=== PATIENT | female | born 2000 | race Two or more races ===

== ENCOUNTER 2025-07-10 18:20 | Observation (INO) | payer MEDICAID, SELFPAY ==
[2025-07-10] VITALS (24 sets, daily range): BP systolic 107–127; BP diastolic 58–65; PULSE 74–108; RESP 16–99; TEMP 36.8; O2SAT 93–100; BMI 22.8
--- NOTE | 2025-07-10 18:44 | XR_ITS ---
Examination: Complete OB ultrasound greater than 14 weeks Date and time of exam: July 10, 2025, 1948 hours INDICATIONS: No care, onset vaginal bleeding today Findings: Viable intrauterine single fetus with single amniotic sac presentation cephalic Cardiac motion 155 bpm Placenta posterior grade 2 Umbilical cord insertion 3 vessels seen Amniotic fluid index 12.5 cm spine maternal right Cervix 3.4 cm Ovaries obscured by bowel gas Composite estimated gestational age based on BPD, head circumference, abdominal circumference, femur length is 30 weeks 4 days Estimated weight 1595 g. Survey of intracranial anatomy, spinal anatomy, abdominal anatomy, four-chamber heart performed with no abnormalities identified. Impression: Viable intrauterine gestation in cephalic presentation.
[2025-07-10 20:09] LABS: Basophils # (Auto) 0.0 Thou/mm3 (0.0-0.2); Basophils % (Auto) 0 % (0-2.5); Eosinophils # (Auto) 0.0 Thou/mm3 (0.0-0.5); Eosinophils % (Auto) 1 % (0-10); Hematocrit 28.4 % (36.0-46.0); Hemoglobin 9.2 g/dL (12.0-16.0); Immature Granulocytes Auto 0.03 Thou/mm3 (0.00-0.00); Lymphocytes # (Auto) 1.0 Thou/mm3 (1.0-4.8); Lymphocytes % (Auto) 18 % (10-50); Mean Corpuscular HGB Conc 32.4 g/dl (31.0-37.0); Mean Corpuscular Hemoglobin 25.5 pg (25.0-35.0); Mean Corpuscular Volume 79 fL (80-100); Monocytes # (Auto) 0.4 Thou/mm3 (0.0-0.8); Monocytes % (Auto) 8 % (0-12); Neutrophils # (Auto) 4.1 Thou/mm3 (1.8-7.7); Neutrophils % (Auto) 73 % (37-80); Nucleated Red Blood Cell # 0.00 Thou/mm3 (0.00-0.00); Nucleated Red Blood Cell % 0 /100 WBC (0); Platelet Count 247 Thou/mm3 (140-440); RDW Standard Deviation 36.2 fL (36.4-46.3); Red Blood Count 3.61 Miln/mm3 (4.00-5.20); White Blood Count 5.7 Thou/mm3 (3.6-11.0)
[2025-07-10 20:31] LABS: Collection Type, Urine Clean Catch
[2025-07-10 20:36] LABS: Alanine Aminotransferase 8 U/L (10-49); Albumin, Serum 3.8 gm/dL (3.5-5.0); Albumin/Globulin Ratio 1.4 (1.2-2.2); Alkaline Phosphatase 149 U/L (46-116); Anion Gap 12 (7-16); Aspartate Amino Transferase 15 U/L (0-34); BUN/Creatinine Ratio 7 Ratio (12-20); Bilirubin,Total 0.4 mg/dL (0.3-1.2); Blood Urea Nitrogen < 5 mg/dL (9-23); Calcium 8.9 mg/dL (8.3-10.6); Calcium (Corrected) 9.1 mg/dL (8.5-10.1); Carbon Dioxide 21.9 mMol/L (20.0-31.0); Chloride 105 mMol/L (98-107); Creatinine (Component) 0.7 mg/dL (0.6-1.3); Estimated Creatinine Clearance 86.0 mL/min (>60); Globulin 2.7 gm/dL (2.3-3.5); Glucose 96 mg/dL (74-106); Osmolality,Calculated 274 (275-295); Potassium 3.4 mMol/L (3.4-5.1); Sodium 139 mMol/L (136-145); Total Protein 6.5 gm/dL (5.7-8.2); Uric Acid 4.4 mg/dL (3.1-7.8); eGFR > 60 See Note
[2025-07-10 20:38] LABS: Fibrinogen 576 mg/dL (175-375); INR 0.9 (0.9-1.3); Partial Thromboplastin Time 26.4 Seconds (22.0-36.0); Prothrombin Time 9.9 Seconds (9.0-12.2)
[2025-07-10 20:43] LABS: Amphetamine/Metham Scrn,Ur OB Negative (Negative); Benzoylecgonine Screen, Ur OB Negative (Negative); Creatinine,Random Urine 134 mg/dL (30-125); Opiate Screen,Urine OB Negative (Negative); Protein Total, Random Urine 32 mg/dL (1-14); THC Screen,Urine OB Negative (Negative)
[2025-07-10 20:46] LABS: Bacteria,Urine Rare; Bilirubin,Urine Negative (Negative); Blood,Urine 3+ (Negative); Calcium Oxalate Crystals,Urine Rare; Clarity,Urine Turbid (Clear/Hazy); Color,Urine Yellow (Lt Yel-Yel); Glucose, Urine Negative (Negative); Ketones,Urine Negative (Negative); Leukocyte Esterase,Urine Positive (Negative); Nitrite,Urine Negative (Negative); PH,Urine 6.0 (5.0-7.0); Protein,Urine Trace (Neg - Trace); RBC,Urine 17 /hpf (0-3); Specific Gravity,Urine 1.022 (1.001-1.035); Squamous Epithelial Cell,Urine 4 /hpf (0-5); Urobilinogen,Urine 4.0 mg/dL (0.0-1.0); WBC,Urine 50 /hpf (0-5)
[2025-07-10 20:50] LABS: HIV (1&2) Antibody Rapid Non-Reactive
[2025-07-10 20:56] LABS: LDH (Lactate Dehydrogenase) 179 U/L (120-246)
[2025-07-10 21:13] LABS: Hepatitis B Surface Antigen Non Reactive (Non React); Rubella, IgG Antibody Equivocal
[2025-07-10 23:56] LABS: Syphilis Nonreactive (Nonreactive)
[2025-07-11 11:19] LABS: Chlamydia trachomatis PCR Positive (Not Detect); Neisseria Gonorrhoeae DNA PCR Negative (Not Detect); Trichomonas Negative (Negative)
== END 2025-07-10 23:37 | disposition home or self-care (01) ==
PROVIDERS: Admitting Provider Obstetrics & Gynecology; Visit Provider Obstetrics & Gynecology
DX: O46.93 Antepartum hemorrhage, unspecified, third trimester (principal); O09.33 Supervision of pregnancy with insufficient antenatal care, third trimester; Z3A.30 30 weeks gestation of pregnancy
CPT/HCPCS: 36415; 59899; 76805; 80053; 80307; 81001; 82570; 83615; 84156; 84550; 85025; 85384; 85610; 85730; 86703; 86762; 86780; 86850; 86900; 86901; 87340; 87491; 87591; 87661

== ENCOUNTER 2025-07-14 09:37 | Outpatient (AMB) | payer MEDICAID, SELFPAY ==
--- NOTE | 2025-07-14 10:15 | OBCLNT_ITS ---
Vital Signs 07/14/25 10:29 Height 1.5 m Height Method Stated Weight 51.426 kg Weight Measurement Method Standing Scale BMI 22.8 BP 105/68 Blood Pressure Source Automatic Cuff Blood Pressure Location Left Upper Arm Position Sitting Respiration 14 Pulse 71 Pulse Source Monitor Temp 97.7 F Temp Source Oral Pulse Oximetry (%) 99 Oxygen Delivery Method Room Air Allergies/Home Meds Allergies & Medications Allergies No Known Allergies Allergy (Verified 07/14/25 10:30) Medication Reconciliation vit no.95-ferrous fumarate 28 mg-folic acid 800 mcg tablet () 1 tab PO QDAY #30 tabs 06/26/23 [Rx Confirmed 07/14/25] Held on 07/10/25. Instructions: pt choice ferrous sulfate 325 mg (65 mg iron) capsule,extended release 1 mg PO QDAY 01/22/24 [History Confirmed 07/14/25] azithromycin 1 gram oral packet 1 g PO QWEEK 3 doses #3 ea 07/14/25 [Rx] Intake Visit Data Collection New Patient or Established: Established Patient (seen at [facility] within 3 years) Reason for Visit:: INITIAL CARE Seen by Clinical Staff ONLY (RN/MA): No Commercial Interior Designer Required: No Do You Feel Safe at Home: Yes Authorities Contacted: N/A PCP or OBGYN visit in last 3 months: No Hx Now: Yes Are you currently on any form of Control: No Last menstrual period: 12/29/24 Pain Present Currently: No Pain Scale Used: Harris-Samano/Numerical Pain scale:: 0 Smoking Status Smoking Status: Never smoker Immunizations Flu Vaccine in the Last 12 Months: No Flu Vaccine Exclusion Criteria: Refused by Patient Questionnaires Covid-19 Vaccine Questionnaire Has patient been vacinated for Covid-19 Have you been vacinated for Covid-19: No PHQ-9 PHQ-2 Over the last 2 weeks, how often have you been bothered by any of the following problems? 1. Little interest or pleasure in doing things: not at all 2. Feeling down, depressed, or hopeless: not at all Total score: 0 PHQ-9 3. Trouble falling or staying asleep, or sleeping too much: Not at all 4. Feeling tired or having little energy: Not at all 5. Poor appetite or overeating: Not at all 6. Feeling bad about yourself - or that you are a failure or have let yourself or your family down: Not at all 7. Trouble concentrating on things, such as reading the newspaper or watching television: Not at all 8. Moving or speaking so slowly that other people could have noticed? - Or the opposite - being so fidgety or restless that you have been moving around a lot more than usual: not at all 9. Thoughts that you would be better off or of hurting yourself in some way: Not at all Total score: 0 Source: Developed by Drs. Ben Black, Luz Vega, Mj Avilez and colleagues, with an educational yuri from [employer]. Depression screen completed yes Social History Living Situation History Housing: House Tobacco History Smoking Status: Never smoker Second Hand Smoke Exposure: No Alcohol History Alcohol Intake: Never Domestic Abuse History Do You Feel Safe at Home: Yes History of Present Illness HPI Narrative Establish care Patient is a [id number] at 30 weeks and 4 days gestation by ultrasound, presenting to [facility] care. She reports a last menstrual period of December 29, 2024, which would make her 28 weeks and 1 day gestational age. However, ultrasound performed on July 10, 2025, dated her at 30 weeks and 4 days, creating a 3-week discrepancy between her ultrasound and LMP dates. Estimated due date is September 14, 2025. She is not currently taking vitamins. She has a history of one previous resulting in delivery at 33 weeks due to pre-eclampsia in 2023. Medical History: - Pre-eclampsia in 2023 Surgical History: - section at 33 weeks gestation due to pre-eclampsia in 2023 Obstetric History: - GTPAL: G2 T0 L1 - First : delivery at 33 weeks, complicated by pre- eclampsia Medications: - None; the patient is not currently taking vitamins or other medications/supplements. 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: Past Medical History Past Medical History: No Hx Neurological Disorders, No Hx Cardiac Disorders, No Hx Cancer, No Hx Blood Disorders, No Hx Anemia, No Hx Gastrointestinal Disorders, No Hx Renal Disease, No Hx Diabetes Mellitus Type 1 and No Hx Diabetes Mellitus Type 2 OB Initial Visit OB Flowsheet OB Flowsheet Initial Weight: Not Recorded Date -?-?-?-?-?-?-?-?-?-?-?-?- EGA Weight BP Alb Glu CTX Pres Fundal ht FHR Mov Dilation Station Effacement Hx Notes Visit Note 07/14/25 -?-?-?-?-?-?-?-?-?-?-?-?- 31w 1d 51.426 kg 105/68 absent cephalic 32 155 active - Lulu Hwang is presenting to establish care with a last menstrual period of 12-29-2024, making her 28 weeks and one day by dates. - Patient was seen in triage on 07-10-20 where ultrasound dating put her at 30 weeks and 4 days, creating a 3-week discrepancy between ultrasound and LMP dates. - She has a history of last ye ar at 33 weeks due to pre-eclampsia. - Patient reports she is not currently t aking vitamins. - She tested positive for chlamydia and had a urinary tract infecti on. - Baseline workup including all labs and pre-eclampsia panel - Closely monitor blood pressures, labs, and urine for protein - Combined antibiotic to treat chlamydia and urinary tract infection - Follow-up test in one month to ensure infection has cleared - One-hour glucose order - Urgent referral for ultrasound in [facility] [place] to check baby and placenta due to previous and delivery - NIPT test order - Start jgcl-hne-fzfzrbd vitami ns from any pharmacy - delivery planned due to prev ious Menstrual History Menstrual reliability: approximate (month known) Flow: normal Menstrual regularity: regular Monthly: Yes Age at menarche: 14 On control pills at conception: No Associated symptoms (LMP): Reports fatigue OB History : 2 Para: 1 Hx # Pregnancies: 1 # of Living Children: 1 Delivery History 1st : Child's name: ERICA date: 04/25/24 sex: female Gestational age at delivery (weeks): 33 Delivery type: Delivery complications: PRECLAMPSIA History of depression before or after : No Infection History & Risk Evaluation History of STDs: none Genetic Screening & History Genetic Screening/Teratology Counseling - Includes patient, baby's father, or anyone in either family with: 1. Patient's age 35 years or older as of estimated date of delivery: No 2. Thalassemia (Bulgarian, English, Mediterranean, or Background); MCV less than 80: No 3. Neural Tube Defect (Meningomyelocele, Spina Bifida, or Anencephaly): No 4. Congenital Heart Defect: No 5. Down Syndrome: No 6. Miguel-Sachs (Ashkenazi Gnosticism, Cajun, Irish [place]): No 7. Dayan Disease (Ashkenazi Gnosticism): No 8. Familial Dysautonomia (Ashkenazi Gnosticism): No 9. Sickle Cell Disease or Trait (): No 10. Hemophilia or other blood disorders: No 11. Muscular Dystrophy: No 12. Cystic Fibrosis: No 13. [place]'s Chorea: No 14. Mental Retardation/Autism: No 15. Other inherited genetic or chromosomal disorder: No 16. Maternal Metabolic Disorder (EG,TYPE 1 Diabetes, PKU): No 17. Patient or baby's father had a child with defects not listed above: No 18. Recurrent loss or a stillbirth: No 19. Medications (including supplements, vitamins, herbs or otc drugs)/illicit/recreational drugs/alcohol since last menstrual period: No 20. Any other: No Infection History 1. Live with someone with TB or exposed to TB: No 2. Rash or viral illness since last menstrual period: No 3. Hepatitis B,C: No Other (see comments) Source: [employer] Review of Systems Constitutional Constitutional: Reports fatigue Endocrine Endocrine: Reports fatigue Office Procedures OBC Clinic LOC & Office Proc's Nursing/Assessment Patient Status: Established Patient OB Clinic Nursing Assessment: Medication Reconciliation, Update PMH in EMR and Vital Signs OB Clinic Coordination of Care: Complex Care and Chronic Disease 1-5, Consent,records obtained, informed consent, Education Simp Pt/Fam, 1 Ins Authorization, Lab and Imaging orders, Results/Orders obtained and Staff clarify orders Special Needs: Heart tones Established Patient Charge Established Patient Point Assignment: 150 Established Patient Point Charge: EP Level 4 (120-155) Assessment & Plan Diagnosis / Problem List (1) Supervision of high risk , unspecified, third trimester: Status: Acute (2) Chlamydia infection: Status: Acute Plan Problem List - at 31 weeks gestation - History of preeclampsia - History of delivery - Anemia - Chlamydial infection - Urinary tract infection Assessment 31-week patient with history of prior delivery at 33 weeks due to pre-eclampsia, now presenting with anemia (hemoglobin 9.2), positive chlamydia infection, urinary tract infection with 3+ blood in urinalysis, and equivocal rubella serology. There is a 3-week discrepancy between ultrasound dating (30 weeks 4 days on 07-10-2025) and last menstrual period dating (28 weeks 1 day based on LMP 12-29-2024), with ultrasound dating being used for estimated due date of September 14. Patient has vertex presentation and will require repeat section due to prior delivery. heart rate is normal at 134 bpm. Chemistry panel, liver enzymes, creatinine, and other infectious disease screening including HIV, hepatitis B, syphilis, gonorrhea, an d trichomonas are negative or within normal limits. Plan - Baseline workup including all labs and pre-eclampsia panel - Closely monitor blood pressures, labs, and urine for protein - Combined antibiotic to treat chlamydia and urinary tract infection - Follow-up test in one month to ensure infection has cleared - One-hour glucose order - Urgent referral for ultrasound in [place] to check baby and placenta due to previous and delivery - NIPT test order - Start [id number] vitamins from any pharmacy - delivery planned due to previous 1. Progress Reviewed gestational age, growth, and heart rate. Planned frequent visits (every 2 weeks until 36 weeks, then weekly). 2. Instructed patient to monitor movements and report decreases immediately. 3. Testing Counseled on routine third-trimester labs per guidelines. Discussed potential need for ultrasound or monitoring based on risk factors. 4. Preeclampsia Precaution Educated on preeclampsia signs: severe headache, vision changes, right upper quadrant pain, sudden swelling. Advised urgent reporting of symptoms and discussed blood pressure monitoring if high risk. 5. Labor Precautions Reviewed labor signs: regular contractions, pelvic pressure, back pain, bleeding, or fluid leakage. Instructed to seek immediate care for these symptoms. 6. Lifestyle and Delivery Preparation Reinforced vitamins, nutrition, and safe activity. Discussed plan, pain management, and . Advised on labor preparation (e.g., hospital bag) and expectations. 7. Psychosocial Support Assessed emotional well-being and offered resources for mental health or parenting support.
[2025-07-14 10:29] VITALS: BP 105/68; PULSE 71; RESP 14; TEMP 36.5; O2SAT 99; BMI 22.8
== END 2025-07-14 10:52 | disposition home or self-care (01) ==
LOC: HODSOBC 09:37
PROVIDERS: Supervising Provider Obstetrics & Gynecology; Visit Provider Obstetrics & Gynecology
DX: O09.893 Supervision of other high risk pregnancies, third trimester (principal); O98.313 Other infections with a predominantly sexual mode of transmission complicating pregnancy, third trimester; A56.8 Sexually transmitted chlamydial infection of other sites; O99.013 Anemia complicating pregnancy, third trimester; O23.43 Unspecified infection of urinary tract in pregnancy, third trimester; O09.213 Supervision of pregnancy with history of pre-term labor, third trimester; O09.293 Supervision of pregnancy with other poor reproductive or obstetric history, third trimester; O34.219 Maternal care for unspecified type scar from previous cesarean delivery; Z3A.31 31 weeks gestation of pregnancy; Z87.59 Personal history of other complications of pregnancy, childbirth and the puerperium
CPT/HCPCS: 99214; G0463

== ENCOUNTER 2025-07-28 11:00 | Outpatient (AMB) | payer MEDICAID, SELFPAY ==
[2025-07-28 11:09] VITALS: BP 113/73; PULSE 92; RESP 18; TEMP 36.1; O2SAT 98; BMI 23.3
--- NOTE | 2025-07-28 11:09 | OBCLNT_ITS ---
Vital Signs 07/28/25 11:09 Height 1.5 m Height Method Stated Weight 52.617 kg Weight Measurement Method Standing Scale BMI 23.3 BP 113/73 Blood Pressure Source Automatic Cuff Blood Pressure Location Left Upper Arm Position Sitting Respiration 18 Pulse 92 Pulse Source Monitor Temp 97 F Temp Source Oral Pulse Oximetry (%) 98 Oxygen Delivery Method Room Air Allergies/Home Meds Allergies & Medications Allergies No Known Allergies Allergy (Verified 09/04/25 05:11) Medication Reconciliation ferrous sulfate 325 mg (65 mg iron) tablet,delayed release 325 mg PO QDAY #30 tabs 09/05/25 [Rx] Intake Visit Data Collection New Patient or Established: Established Patient (seen at [facility] within 3 years) Reason for Visit:: OBC Seen by Clinical Staff ONLY (RN/MA): No Floating Labor Gang Supervisor Required: No Do You Feel Safe at Home: Yes Authorities Contacted: N/A PCP or OBGYN visit in last 3 months: Yes Date of Last PCP or OBGYN visit: 07/14/25 Hx Now: Yes Are you currently on any form of Control: No Pain Present Currently: No Pain Scale Used: Harris-Samano/Numerical Pain scale:: 0 Smoking Status Smoking Status: Never smoker Immunizations Flu Vaccine in the Last 12 Months: No Flu Vaccine Exclusion Criteria: No Exclusion Criteria Questionnaires Covid-19 Vaccine Questionnaire Has patient been vacinated for Covid-19 Have you been vacinated for Covid-19: No PHQ-9 PHQ-2 Over the last 2 weeks, how often have you been bothered by any of the following problems? 1. Little interest or pleasure in doing things: not at all 2. Feeling down, depressed, or hopeless: not at all Total score: 0 PHQ-9 3. Trouble falling or staying asleep, or sleeping too much: Not at all 4. Feeling tired or having little energy: Not at all 5. Poor appetite or overeating: Not at all 6. Feeling bad about yourself - or that you are a failure or have let yourself or your family down: Not at all 7. Trouble concentrating on things, such as reading the newspaper or watching television: Not at all 8. Moving or speaking so slowly that other people could have noticed? - Or the opposite - being so fidgety or restless that you have been moving around a lot more than usual: not at all If you checked off any problems, how difficult have these problems made it for you to do your work, take care of things at home, or get along with other people?: not difficult at all Source: Developed by Drs. Ben Black, Luz Vega, Mj Avilez and colleagues, with an educational yuri from [email or web address]. 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 Medical History Past Medical History: No Hx Neurological Disorders, No Hx Cardiac Disorders, No Hx Cancer, No Hx Blood Disorders, No Hx Anemia, No Hx Gastrointestinal Disorders, No Hx Renal Disease, No Hx Diabetes Mellitus Type 1 and No Hx Diabetes Mellitus Type 2 Care OB Visit Log OB Flowsheet Initial Weight: Not Recorded Date -?-?-?-?-?-?-?-?-?-?-?-?- EGA Weight BP Alb Glu CTX Pres Fundal ht FHR Mov Dilation Station Effacement Hx Notes Visit Note 07/14/25 -?-?-?-?-?-?-?-?-?-?-?-?- 31w 1d 51.426 kg 105/68 absent cephalic 32 155 active - Lulu Hwang is presenting to establish care with a last menstrual period of 12-29-2024, making her 28 weeks and one day by dates. - Patient was seen in triage on 07-10-20 where ultrasound dating put her at 30 weeks and 4 days, creating a 3-week discrepancy between ultrasound and LMP dates. - She has a history of last ye ar at 33 weeks due to pre-eclampsia. - Patient reports she is not currently t aking vitamins. - She tested positive for chlamydia and had a urinary tract infecti on. - Baseline workup including all labs and pre-eclampsia panel - Closely monitor blood pressures, labs, and urine for protein - Combined antibiotic to treat chlamydia and urinary tract infection - Follow-up test in one month to ensure infection has cleared - One-hour glucose order - Urgent referral for ultrasound in [place] to check baby and placenta due to previous and delivery - NIPT test order - Start eymj-ljn-lfpqaem vitami ns from any pharmacy - delivery planned due to prev ious 07/28/25 -?-?-?-?-?-?-?-?-?-?-?-?- 33w 1d 52.617 kg 113/73 absent cephalic 34 150 active - Lulu Hwang presents for routine appointment at 33 weeks and 1 day gestation. - Patient reports no contractions, cramp ing, or leaking. - She notes the baby has been active, pa rticularly this morning. - Patient was prescribed azithromycin at last visit for an infection but reports the pharmacy did not have it available. - Send alternative antibiotic p rescription as azithromycin was not available at pharmacy - Follow-up appointment in 2 weeks with Raquel (mailroom coordinator) - After 2-week visit, transition to week ly visits - Provide requested documentation for We estefania 08/11/25 -?-?-?-?-?-?-?-?-?-?-?-?- 35w 1d 54.658 kg 105/71 absent cephalic 35 156 active No complaints of contractions. Denies leaking or bleeding. Reports good movement. Complains of a vaginal discharge and itching. Labia and vagina are red. Heavy curdy white-greenish discharge N uSwab and GBS today. Diflucan 150 p.o. daily x 3. Flagyl 500 p.o. twice daily x 7. Discussed labor precautions kick count. Return in a week OB check 08/23/25 -?-?-?-?-?-?-?-?-?-?-?-?- 36w 6d 55.905 kg 118/80 absent cephalic 35 156 active Denies leaking or bleeding. Occasional contraction and pressure. Fetus is active. Patient reports that her vaginal discharge has improved Discussed labor precautions. Kick count twice a day. Discussed danger signs symptoms. Continue prenatals return week OB check 09/01/25 -?-?-?-?-?-?-?-?-?-?-?-?- 38w 1d 55.849 kg 122/78 absent cephalic 37 145 active Denies leaking or bleeding. No contractions. Reports good movement Discussed labor precautions. Kick count twice a day. Increase fluids. Continue prenatals return in a week for OB check Discussed labor precautions. Kick count twice a day. Increase fluids. Continue prenatals return in a week for OB check, schedule repeat c/s today for 09/08 MICA Calculator Estimated Delivery Date Method Current WG Current Estimate 09/14/25 Ultrasound #1 40w 0d Other Estimates 10/05/25 LMP (Certain) 37w 0d 09/14/25 Manual 40w 0d final mica 09/14 Notes Visit Date: 08/23/25 Last Updated by: Raquel Felton CNM GBS-/Nuswab+ for BV and yeast Visit Date: 08/11/25 Last Updated by: Raquel Felton CNM 24 yo poor dates. 1st sono: 07/10/25. IUP; 30w4. EDC: 09/14/25 Visit Date: 07/14/25 Last Updated by: Martinez Dominguez MD - Date: 07/10/2025 - Obstetric ultrasound: Gestational age 30 weeks 4 days, heart rate 134 bpm, fetus in vertex presentation - CBC: Hemoglobin 9.2 g/dL (low), Platelets 247 - Comprehensive metabolic panel: AST 15, ALT 8, Creatinine 0.7 (within normal limits) - STI panel: Chlamydia positive, Gonorrhea negative, Trichomonas negative, HIV negative, Hepatitis B negative, Syphilis non-reactive - Rubella: Equivocal - Toxicology screen: Negative - Urinalysis: 3+ blood, random protein 32, random creatinine 134, protein/creatinine ratio 0.23 Office Procedures OBC Clinic LOC & Office Proc's Nursing/Assessment Patient Status: Established Patient OB Clinic Nursing Assessment: Medication Reconciliation, Update PMH in EMR and Vital Signs OB Clinic Coordination of Care: Education Complex Pt/Fam, Consent,records obtained, informed consent, Lab and Imaging orders, Results/Orders obtained and Staff clarify orders Special Needs: Heart tones Established Patient Charge Established Patient Point Assignment: 115 Established Patient Point Charge: EP Level 3 (80-115) Assessment & Plan Diagnosis / Problem List (1) Chlamydia infection: Status: Acute (2) Supervision of high risk , unspecified, third trimester: Status: Acute Plan Problem List - at 33 weeks and 1 day gestation - Chlamydia infection - Late care Assessment 33-week and 1-day gestation with late entry to care (first visit at 31 weeks). Initial laboratories and trisomy screening are negative with female gender confirmed. Patient has chlamydia infection requiring antibiotic treatment, with azithromycin unavailable at pharmacy necessitating alternative antibiotic prescription. heart rate is 150 bpm which is within normal limits, and patient reports movement with no contractions, cramping, or leaking of fluid. Plan - Send alternative antibiotic prescription as azithromycin was not available at pharmacy - Follow-up appointment in 2 weeks with Raquel (mailroom coordinator) - After 2-week visit, transition to weekly visits - Provide requested documentation for [employer] 1. Progress Reviewed gestational age, growth, and heart rate. Planned frequent visits (every 2 weeks until 36 weeks, then weekly). 2. Instructed patient to monitor movements and report decreases immediately. 3. Testing Counseled on routine third-trimester labs per guidelines. Discussed potential need for ultrasound or monitoring based on risk factors. 4. Preeclampsia Precaution Educated on preeclampsia signs: severe headache, vision changes, right upper quadrant pain, sudden swelling. Advised urgent reporting of symptoms and discussed blood pressure monitoring if high risk. 5. Labor Precautions Reviewed labor signs: regular contractions, pelvic pressure, back pain, bleeding, or fluid leakage. Instructed to seek immediate care for these symptoms. 6. Lifestyle and Delivery Preparation Reinforced vitamins, nutrition, and safe activity. Discussed plan, pain management, and . Advised on labor preparation (e.g., hospital bag) and expectations. 7. Psychosocial Support Assessed emotional well-being and offered resources for mental health or parenting support.
== END 2025-07-28 11:20 | disposition home or self-care (01) ==
LOC: HODSOBC 11:00
PROVIDERS: Supervising Provider Obstetrics & Gynecology; Visit Provider Obstetrics & Gynecology
DX: O09.893 Supervision of other high risk pregnancies, third trimester (principal); O98.313 Other infections with a predominantly sexual mode of transmission complicating pregnancy, third trimester; A56.8 Sexually transmitted chlamydial infection of other sites; O09.33 Supervision of pregnancy with insufficient antenatal care, third trimester; Z3A.33 33 weeks gestation of pregnancy
CPT/HCPCS: 99213; G0463

== ENCOUNTER 2025-08-23 10:27 | Outpatient (AMB) | payer MEDICAID, SELFPAY ==
[2025-08-23 10:34] VITALS: BP 118/80; PULSE 106; RESP 18; TEMP 36.2; O2SAT 98; BMI 24.8
--- NOTE | 2025-08-23 10:34 | OBCLNT_ITS ---
Vital Signs 08/23/25 10:34 Height 1.5 m Height Method Stated Weight 55.905 kg Weight Measurement Method Standing Scale BMI 24.8 BP 118/80 Blood Pressure Source Automatic Cuff Blood Pressure Location Left Upper Arm Position Sitting Respiration 18 Pulse 106 H Pulse Source Monitor Temp 97.2 F Temp Source Oral Pulse Oximetry (%) 98 Oxygen Delivery Method Room Air Allergies/Home Meds Allergies & Medications Allergies No Known Allergies Allergy (Verified 08/23/25 10:36) Medication Reconciliation No Known Home Medications 08/23/25 [History Confirmed 08/23/25] Immunizations Immunizations Flu Vaccine in the Last 12 Months: No Flu Vaccine Exclusion Criteria: No Exclusion Criteria Care OB Visit Log OB Flowsheet Initial Weight: Not Recorded Date -?-?-?-?-?-?-?-?-?-?-?-?- EGA Weight BP Alb Glu CTX Pres Fundal ht FHR Mov Dilation Station Effacement Hx Notes Visit Note 07/14/25 -?-?-?-?-?-?-?-?-?-?-?-?- 31w 1d 51.426 kg 105/68 absent cephalic 32 155 active - Lulu Hwang is presenting to establish care with a last menstrual period of 12-29-2024, making her 28 weeks and one day by dates. - Patient was seen in triage on 07-10-20 where ultrasound dating put her at 30 weeks and 4 days, creating a 3-week discrepancy between ultrasound and LMP dates. - She has a history of last ye ar at 33 weeks due to pre-eclampsia. - Patient reports she is not currently t aking vitamins. - She tested positive for chlamydia and had a urinary tract infecti on. - Baseline workup including all labs and pre-eclampsia panel - Closely monitor blood pressures, labs, and urine for protein - Combined antibiotic to treat chlamydia and urinary tract infection - Follow-up test in one month to ensure infection has cleared - One-hour glucose order - Urgent referral for ultrasound in [facility] [place] to check baby and placenta due to previous and delivery - NIPT test order - Start nrjm-zxs-gmetfst vitami ns from any pharmacy - delivery planned due to prev ious 08/11/25 -?-?-?-?-?-?-?-?-?-?-?-?- 35w 1d 54.658 kg 105/71 absent cephalic 35 156 active No complaints of contractions. Denies leaking or bleeding. Reports good movement. Co mplains of a vaginal discharge and itching. Labia and vagina are red. Heavy curdy white-greenish discharge N uSwab and GBS today. Diflucan 150 p.o. daily x 3. Flagyl 500 p.o. twice daily x 7. Discussed labor precautions kick count. Return in a week OB check 08/23/25 -?-?-?-?-?-?-?-?-?-?-?-?- 36w 6d 55.905 kg 118/80 absent cephalic 35 156 active Denies leaking or bleeding. Occasional contraction and pressure. Fetus is active. Patient reports that her vaginal discharge has improved Discussed labor precautions. Kick count twice a day. Discussed danger signs symptoms. Continue prenatals return week OB check EDWARDO Calculator Estimated Delivery Date Method Current WG Current Estimate 09/14/25 Ultrasound #1 36w 6d Other Estimates 10/05/25 LMP (Certain) 33w 6d 09/14/25 Manual 36w 6d final edwardo 09/14 Notes Visit Date: 08/23/25 Last Updated by: Raquel Felton CNM GBS-/Nuswab+ for BV and yeast Visit Date: 08/11/25 Last Updated by: Raquel Felton CNM 24 yo poor dates. 1st sono: 07/10/25. IUP; 30w4. EDC: 09/14/25 Visit Date: 07/14/25 Last Updated by: Martinez Dominguez MD - Date: 07/10/2025 - Obstetric ultrasound: Gestational age 30 weeks 4 days, heart rate 134 bpm, fetus in vertex presentation - CBC: Hemoglobin 9.2 g/dL (low), Platelets 247 - Comprehensive metabolic panel: AST 15, ALT 8, Creatinine 0.7 (within normal limits) - STI panel: Chlamydia positive, Gonorrhea negative, Trichomonas negative, HIV negative, Hepatitis B negative, Syphilis non-reactive - Rubella: Equivocal - Toxicology screen: Negative - Urinalysis: 3+ blood, random protein 32, random creatinine 134, protein/creatinine ratio 0.23 Office Procedures OBC Clinic LOC & Office Proc's Nursing/Assessment Patient Status: Established Patient OB Clinic Nursing Assessment: Medication Reconciliation, Update PMH in EMR and Vital Signs OB Clinic Coordination of Care: Consent,records obtained, informed consent, Education Simp Pt/Fam, Lab and Imaging orders, Results/Orders obtained and Staff clarify orders Special Needs: Heart tones Established Patient Charge Established Patient Point Assignment: 110 Established Patient Point Charge: EP Level 3 (80-115) Assessment & Plan Diagnosis / Problem List (1) Supervision of high risk , unspecified, third trimester: Status: Acute Plan Discussed labor precautions. Kick count twice a day. Reviewed danger signs symptoms continue prenatals return week OB check Additional Plan Follow Up: 1 Week (obc)
== END 2025-08-23 11:25 | disposition home or self-care (01) ==
LOC: HODSOBC 10:27
PROVIDERS: Supervising Provider Advanced Practice Midwife; Visit Provider Advanced Practice Midwife
DX: O09.93 Supervision of high risk pregnancy, unspecified, third trimester (principal); Z3A.36 36 weeks gestation of pregnancy
CPT/HCPCS: 99213; G0463

== ENCOUNTER 2025-09-01 11:22 | Outpatient (AMB) | payer MEDICAID, SELFPAY ==
[2025-09-01 11:42] VITALS: BP 122/78; PULSE 83; RESP 18; TEMP 36.5; O2SAT 98; BMI 24.7
--- NOTE | 2025-09-01 11:42 | OBCLNT_ITS ---
Vital Signs 09/01/25 11:42 Height 1.5 m Height Method Stated Weight 55.849 kg Weight Measurement Method Standing Scale BMI 24.7 BP 122/78 Blood Pressure Source Automatic Cuff Blood Pressure Location Right Upper Arm Position Sitting Respiration 18 Pulse 83 Pulse Source Monitor Temp 97.7 F Temp Source Temporal Artery Scan Pulse Oximetry (%) 98 Oxygen Delivery Method Room Air Allergies/Home Meds Allergies & Medications Allergies No Known Allergies Allergy (Verified 09/01/25 11:44) Medication Reconciliation No Known Home Medications 08/23/25 [History Confirmed 09/01/25] Immunizations Immunizations Flu Vaccine in the Last 12 Months: No Flu Vaccine Exclusion Criteria: Refused by Patient Care OB Visit Log OB Flowsheet Initial Weight: Not Recorded Date -?-?-?-?-?-?-?-?-?-?-?-?- EGA Weight BP Alb Glu CTX Pres Fundal ht FHR Mov Dilation Station Effacement Hx Notes Visit Note 07/14/25 -?-?-?-?-?-?-?-?-?-?-?-?- 31w 1d 51.426 kg 105/68 absent cephalic 32 155 active - Lulu Hwang is presenting to establish care with a last menstrual period of 12-29-2024, making her 28 weeks and one day by dates. - Patient was seen in triage on 07-10-20 where ultrasound dating put her at 30 weeks and 4 days, creating a 3-week discrepancy between ultrasound and LMP dates . - She has a history of last ye ar at 33 weeks due to pre-eclampsia. - Patient reports she is not currently t aking vitamins. - She tested positive for chlamydia and had a urinary tract infecti on. - Baseline workup including all labs and pre-eclampsia panel - Closely monitor blood pressures, labs, and urine for protein - Combined antibiotic to treat chlamydia and urinary tract infection - Follow-up test in one month to ensure infection has cleared - One-hour glucose order - Urgent referral for ultrasound in [facility] [place] to check baby and placenta due to previous and delivery - NIPT test order - Start lrjk-ezu-eelhoot vitami ns from any pharmacy - delivery planned due to prev ious 08/11/25 -?-?--?-?-?-?-?-?-?-?-?-?- 35w 1d 54.658 kg 105/71 absent cephalic 35 156 active No complaints of contractions. Denies leaking or bleeding. Reports good movement. Complains of a vaginal discharge and itching. Labia and vagina are red. Heavy curdy white-greenish discharge N uSwab and GBS today. Diflucan 150 p.o. daily x 3. Flagyl 500 p.o. twice daily x 7. Discussed labor precautions kick count. Return in a week OB check 08/23/25 -?-?-?-?-?-?-?-?-?-?-?-?- 36w 6d 55.905 kg 118/80 absent cephalic 35 156 active Denies leaking or bleeding. Occasional contraction and pressure. Fetus is active. Patient reports that her vaginal discharge has improved Discussed labor precautions. K ick count twice a day. Discussed danger signs symptoms. Continue prenatals return week OB check 09/01/25 -?-?-?-?-?-?-?-?-?-?-?-?- 38w 1d 55.849 kg 122/78 absent cephalic 37 145 active Denies leaking or bleeding. No contractions. Reports good movement Discussed labor precautions. Kick count twice a day. Increase fluids. Continue prenatals return in a week for OB check Discussed labor precautions. Kick count twice a day. Increase fluids. Continue prenatals return in a week for OB check, schedule repeat c/s today for 09/08 EDWARDO Calculator Estimated Delivery Date Method Current WG Current Estimate 09/14/25 Ultrasound #1 38w 1d Other Estimates 10/05/25 LMP (Certain) 35w 1d 09/14/25 Manual 38w 1d final edwardo 09/14 Notes Visit Date: 08/23/25 Last Updated by: Raquel Felton CNM GBS-/Nuswab+ for BV and yeast Visit Date: 08/11/25 Last Updated by: Raquel Felton CNM 24 yo poor dates. 1st sono: 07/10/25. IUP; 30w4. EDC: 09/14/25 Visit Date: 07/14/25 Last Updated by: Martinez Dominguez MD - Date: 07/10/2025 - Obstetric ultrasound: Gestational age 30 weeks 4 days, heart rate 134 bpm, fetus in vertex presentation - CBC: Hemoglobin 9.2 g/dL (low), Platelets 247 - Comprehensive metabolic panel: AST 15, ALT 8, Creatinine 0.7 (within normal limits) - STI panel: Chlamydia positive, Gonorrhea negative, Trichomonas ne gative, HIV negative, Hepatitis B negative, Syphilis non-reactive - Rubella: Equivocal - Toxicology screen: Negative - Urinalysis: 3+ blood, random protein 32, random creatinine 134, protein/creatinine ratio 0.23 Office Procedures OBC Clinic LOC & Office Proc's Nursing/Assessment Patient Status: Established Patient OB Clinic Nursing Assessment: Medication Reconciliation, Update PMH in EMR and Vital Signs OB Clinic Coordination of Care: Complex Care and Chronic Disease 1-5, Education Complex Pt/Fam, Consent,records obtained, informed consent, Lab and Imaging orders, Results/Orders obtained and Staff clarify orders Special Needs: Heart tones Established Patient Charge Established Patient Point Assignment: 140 Established Patient Point Charge: EP Level 4 (120-155) Assessment & Plan Diagnosis / Problem List (1) Supervision of high risk , unspecified, third trimester: Status: Acute Plan Discussed labor precautions. Kick count twice a week day. Increase fluids. Continue prenatals. Return in a week OB check and practice safe sex Additional Plan Follow Up: 1 Week (obc)
== END 2025-09-01 12:03 | disposition home or self-care (01) ==
LOC: HODSOBC 11:22
PROVIDERS: Supervising Provider Advanced Practice Midwife; Visit Provider Advanced Practice Midwife
DX: O09.93 Supervision of high risk pregnancy, unspecified, third trimester (principal); Z3A.38 38 weeks gestation of pregnancy; Z28.21 Immunization not carried out because of patient refusal
CPT/HCPCS: 99214; G0463

== ENCOUNTER 2025-09-04 05:00 | Inpatient (IN) | payer MEDICAID, SELFPAY ==
[2025-09-04] VITALS (17 sets, daily range): BP systolic 116–146; BP diastolic 61–91; PULSE 75–186; RESP 14–100; TEMP 36.2–36.9; O2SAT 91–100; BMI 24.8
[2025-09-04] MEDS: TERBUTALINE SULF INJ 1 MG/ML VIAL 0.25 MG SC (05:48)
[2025-09-04 06:05] LABS: Collection Type, Urine Clean Catch
[2025-09-04 06:13] LABS: Basophils # (Auto) 0.0 Thou/mm3 (0.0-0.2); Basophils % (Auto) 0 % (0-2.5); Eosinophils # (Auto) 0.1 Thou/mm3 (0.0-0.5); Eosinophils % (Auto) 2 % (0-10); Hematocrit 31.7 % (36.0-46.0); Hemoglobin 9.8 g/dL (12.0-16.0); Immature Granulocytes Auto 0.05 Thou/mm3 (0.00-0.00); Lymphocytes # (Auto) 2.0 Thou/mm3 (1.0-4.8); Lymphocytes % (Auto) 22 % (10-50); Mean Corpuscular HGB Conc 30.9 g/dl (31.0-37.0); Mean Corpuscular Hemoglobin 22.6 pg (25.0-35.0); Mean Corpuscular Volume 73 fL (80-100); Monocytes # (Auto) 0.7 Thou/mm3 (0.0-0.8); Monocytes % (Auto) 7 % (0-12); Neutrophils # (Auto) 6.5 Thou/mm3 (1.8-7.7); Neutrophils % (Auto) 69 % (37-80); Nucleated Red Blood Cell # 0.00 Thou/mm3 (0.00-0.00); Nucleated Red Blood Cell % 0 /100 WBC (0); Platelet Count 233 Thou/mm3 (140-440); RDW Standard Deviation 41.5 fL (36.4-46.3); Red Blood Count 4.34 Miln/mm3 (4.00-5.20); White Blood Count 9.4 Thou/mm3 (3.6-11.0)
[2025-09-04] MEDS: ceFAZolin/D5W 2 GM IV 2 GM/100 ML BAG IV (06:16)
[2025-09-04] MEDS: FAMOTIDINE INJ 10 MG/ML VIAL 2 ML 20 MG IV (06:16)
[2025-09-04] MEDS: CITRIC ACID/SODIUM CITR 15 ML UDC (BICITRA) 30 ML PO (06:16)
--- NOTE | 2025-09-04 06:32 | PD.LDHP ---
Documentation for date of: 09/04/25 OB Labor/Induct. HPI History of Present Illness Chief complaint: contractions : 2 Para: 1 Term pregnancies: 0 pregnancies: 1 Living children: 1 History of Abortions: Spontaneous and Elective: 0 History of Vaginal deliveries: 0 History of sections: Yes History of : No Date of last menstrual period: 12/29/24 EDWARDO: 09/14/25 Gestational Age (weeks): 38 Gestational Age (days): 4 Gestational age based on last menstrual period: 35 History of present illness: Patient presents for regular, painful ctx. When presented to triage, had gross rupture of membranes, clear. No vaginal bleeding. Normal movement. No fevers/chills. History of Present Dating criteria: based on 3rd trimester US only Adequate Care: Yes Ultrasounds: other (1st ultrasound in 3rd trimester) Narrative: -History of prior section at 33 weeks on 01/28/2024 for possible abruption in the setting of PPROM and pre-eclampsia with severe features -Short inter- interval -Late to care at 30 weeks -Chlamydia treated in -anemia -PNC with Dr. Dominguez/MARIELY Felton Labs Maternal Blood Type: O Pos Labs: Positive: Chlamydia, Negative: RPR, Hepatitis B, Rubella Titre, HIV, Gonorrhea and Group Beta Strep and Unknown: Herpes Type 1 and Herpes Type 2 Review of Systems Review of Systems Narrative Review of Systems: Review of Systems Systems Reviewed: All systems reviewed, normal except as documented Constitutional Constitutional: Denies body ache(s), Denies chills, Denies fever(s) and Denies headache(s) ENT Ears, Nose, Mouth, and Throat: Denies headache(s) and Denies vertigo Cardiovascular Cardiovascular: Denies chest pain, Denies palpitations, Denies dyspnea and Denies syncope Respiratory Respiratory: Denies cough, Denies dyspnea Gastrointestinal Gastrointestinal: Denies nausea and Denies vomiting Neurologic Neurologic: Denies convulsions, Denies headache(s), Denies other visual disturbances, Denies syncope and Denies vertigo Past Medical History Surgical History SURGICAL: Positive Section Meds Home Medications and Allergies Home Medications ?Medication ?Instructions ?Recorded ?Confirmed ?Type No Known Home Medications 08/23/25 09/04/25 History Allergies Allergy/AdvReac Type Severity Reaction Status Date / Time No Known Allergies Allergy Verified 09/04/25 05:11 OB Exam Physical Exam Vital signs: Temp Pulse Resp BP Pulse Ox 97.3 F 75 17 146/87 H 99 09/04/25 05:20 09/04/25 05:48 09/04/25 05:20 09/04/25 05:23 09/04/25 05:55 Narrative: General: well developed, well nourished, no acute distress, conversant Cardiac: normal heart rate Lungs: breathing without distress Abdomen: soft, gravid, non-tender, no rebound or guarding Extremities: no edema BLE Detailed Labor and Delivery Exam Dilation (cm): 3 Effacement (%): 90 Cervix position: mid station: -1 Consistency: soft Presentation: Vertex Membranes: ruptured (clear 0515) Amniotic fluid: clear monitor accelerations: 15x15 monitor decelerations: None 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 Mild range bp's, benign exam. Reassuring assessment. PMhx/ significant for: -History of prior section at 33 weeks on 01/28/2024 for possible abruption in the setting of PPROM and pre-eclampsia with severe features -Short inter- interval -Late to care at 30 weeks -Chlamydia treated in -anemia -PNC with Dr. Dominguez/MARIELY Felton Plan: -Admit to L&D -Establish IV, routine labs to include PIH labs and chlamydia LARON -NPO -Counseled/consented re: section. Discussed all r/b/a to include: bleeding (possible need for blood transfusion), infection (subcutaneous, deeper layers or uterine with possible need for prolonged admission or re-admission for IV antibiotics, I&D with wound packing, etc), injury to nearby structures such as bladder, bowel, ureters, blood vessels, nerves with possible need for re-operation, pain, injury to baby, hysterectomy, DVT/PE, . Answered all questions to patient and their support person's satisfaction. -IV abx ppx: ancef 2g IV and azithromycin 500mg IV -Nursing and anesthesia team aware of plan for section. Will proceed to OR when team is ready (2) 38 weeks gestation of : Status: Acute (3) History of delivery, antepartum: Status: Acute
[2025-09-04 06:38] LABS: Fibrinogen 726 mg/dL (175-375); INR 0.9 (0.9-1.3); Partial Thromboplastin Time 26.0 Seconds (22.0-36.0); Prothrombin Time 9.7 Seconds (9.0-12.2)
[2025-09-04 06:41] LABS: Bacteria,Urine 1+; Bilirubin,Urine Negative (Negative); Blood,Urine Trace (Negative); Clarity,Urine Turbid (Clear/Hazy); Color,Urine Lt-Yellow (Lt Yel-Yel); Glucose, Urine Negative (Negative); Ketones,Urine Negative (Negative); Leukocyte Esterase,Urine Positive (Negative); Nitrite,Urine Negative (Negative); PH,Urine 6.0 (5.0-7.0); Protein,Urine Trace (Neg - Trace); RBC,Urine 2 /hpf (0-3); Specific Gravity,Urine 1.009 (1.001-1.035); Squamous Epithelial Cell,Urine 14 /hpf (0-5); Urobilinogen,Urine Negative mg/dL (0.0-1.0); WBC,Urine 23 /hpf (0-5)
[2025-09-04 07:25] LABS: Amphetamine/Metham Scrn,Ur OB Negative (Negative); Benzoylecgonine Screen, Ur OB Negative (Negative); Opiate Screen,Urine OB Negative (Negative); THC Screen,Urine OB Negative (Negative)
[2025-09-04 07:32] LABS: Creatinine,Random Urine 43 mg/dL (30-125); Protein Total, Random Urine 23 mg/dL (1-14)
[2025-09-04 07:34] LABS: Alanine Aminotransferase < 7 U/L (10-49); Albumin, Serum 4.3 gm/dL (3.5-5.0); Albumin/Globulin Ratio 1.4 (1.2-2.2); Alkaline Phosphatase 233 U/L (46-116); Anion Gap 11 (7-16); Aspartate Amino Transferase 15 U/L (0-34); BUN/Creatinine Ratio 10 Ratio (12-20); Bilirubin,Total 0.3 mg/dL (0.3-1.2); Blood Urea Nitrogen 8 mg/dL (9-23); Calcium 9.0 mg/dL (8.3-10.6); Calcium (Corrected) 9.0 mg/dL (8.5-10.1); Carbon Dioxide 20.0 mMol/L (20.0-31.0); Chloride 106 mMol/L (98-107); Creatinine (Component) 0.8 mg/dL (0.6-1.3); Estimated Creatinine Clearance 84.0 mL/min (>60); Globulin 3.1 gm/dL (2.3-3.5); Glucose 104 mg/dL (74-106); Osmolality,Calculated 272 (275-295); Potassium 4.0 mMol/L (3.4-5.1); Sodium 137 mMol/L (136-145); Total Protein 7.4 gm/dL (5.7-8.2); Uric Acid 6.1 mg/dL (3.1-7.8); eGFR > 60 See Note
[2025-09-04 07:39] LABS: Syphilis Nonreactive (Nonreactive)
[2025-09-04] MEDS: METOCLOPRAMIDE INJ 5 MG/ML VIAL 2 ML 10 MG IVP (08:01)
[2025-09-04] MEDS: AZITHROMYCIN INJ 500 MG in SODIUM CHLORIDE 0.9% 250 ML 250 ML 250 MG IV (08:20)
--- NOTE | 2025-09-04 09:19 | ESOP_ITS ---
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 Mild range bp's noted, so PIH labs were performed which were significant for urine p:c 0.5, serum creatinine 0.8 and hgb 9.8. New diagnosis of pre-eclampsia withOUT severe features. Pre-Op diagnosis: -SIUP at 38w4d -Active labor with SROM -History of prior section at 33 weeks on 01/28/2024 for possible abruption in the setting of PPROM and pre-eclampsia with severe features -New diagnosis of pre-eclampsia withOUT severe features -Short inter- interval -Late to care at 30 weeks -Chlamydia treated in -Anemia Post-Op diagnosis: -SIUP at 38w4d -Active labor with SROM -History of prior section at 33 weeks on 01/28/2024 for possible ab ruption in the setting of PPROM and pre-eclampsia with severe features -New diagnosis of pre-eclampsia withOUT severe features -Short inter- interval -Late to care at 30 weeks -Chlamydia treated in -Anemia Anesthesia type: Spinal (with sedation) Fluids: crystalloid Fluid amount (mL): 2,000 Urine output (mL): 150 Specimen: other (placenta and cord not sent to pathology) Estimated blood loss (ml): 800 Findings: Female infant in cephalic presentation. Apgars 9/9. Time of 08:45 on 09/04/25. Weight 3180g. Scarring in subcutaneous layer Uterus had small adhesion to anterior abdominal wall Bladder adhesed up superiorly onto uterus Otherwise normal appearing uterus, fallopian tubes and ovaries Complications: none Narrative: After obtaining informed consent, the patient was taken to the operating room. There was reassuring heart rate tracing prior. Spinal anesthesia was administered. A tapia catheter was in place and bilateral sequential compression devices were placed. She was then prepped and draped in the normal sterile fashion in the dorsal supine position with left lateral tilt. A timeout was performed to confirm patient name, date of , procedure and indication. The team was in agreement. Spinal anesthesia was found to be adequate using an Allis clamp. Anceph 2g IV x1 and Azithromycin 500mg IV x1 were given for prophylaxis. A Pfannenstiel skin incision was then made with the scalpel and carried through to the underlying layer of fascia. The fascia was incised in the midine and the incision was extended laterally with the Vaughn scissors. The superior and inferior aspects of the fascial incision were then grasped with the Federico clamps, elevated and the underlying rectus muscles were dissected off bluntly and sharply. The peritoneum was entered digitally and the rectus muscles were then in the midline. The peritoneal incision was then extended superiorly and inferiorly with good visualization of the bladder. An Jaret retractor was placed. The lower uterine segment was scored in a transverse fashion with the scalpel. The uterus was then entered bluntly and the incision was extended with traction with clear amniotic fluid noted. The infant's head was elevated to the level of the incision. Fundal pressure was applied. The head was delivered atraumatically in the OA position. The anterior shoulder, posterior shoulder and corpus were delivered without difficulty. The nose and mouth were suctioned with bulb suction and cord was clamped x2 and cut. was vigorous. The was handed off to the awaiting nursing team. Cord blood obtained for typing. The placenta was then removed with uterine massage and cord traction. The uterus was exteriorized and cleared of all clot and debris. The uterine incision was repaired with 0-monocryl suture in a running locking fashion. Close attention was paid to the left aspect of the hysterotomy where there was a small inferior extension which was reinforced with 0-monocryl in running fashion- complete closure ensured. The uterine incision was inspected and hemostasis was noted. In addition to standard IV pitocin, patient received TXA 1g IV x1. Good uterine tone achieved and maintained. The posterior cul-de-sac was suctioned and the uterus returned to the abdomen. The gutters were cleared of all clot. Jaret retractor was removed. Surgicel snow placed overlying repaired hysterotomy. The peritoneum was closed using a 3- 0 vicryl suture in running fashion. The rectus muscles were inspected and small areas of oozing were cauterized. The fascia was reapproximated with 0-Vicryl suture in a running fashion. The subcutaneous tissue was then copiously irrigated. Subcutaneous layer was noted to be <2cm in depth, so no closure required, but all small bleeding areas were cauterized with the Bovie such that there was complete hemostasis. The skin was reapproximated with 4-0 monocryl suture in r unning subcuticular fashion. The incision was cleaned with a wet lap and dried with a dry lap. Ozsoqlmuz-mwemdsvmwzw-kioy bandage was applied overlying the incision and activated according to winch truck operator instructions. Fundus was firm at the umbilicus. Sponge, lap and needle counts were correct x2. The procedure was without complications and the patient tolerated the procedure well. She was taken to recover further on Labor and Delivery, in stable condition. Surgical staff Operation Date: 09/04/25 08:15 Case Staff TOP HAT BODY MAKER: Dallas Bain RN First Assistant: Bg Alcala Diagnosis Discharge Diagnosis (1) History of delivery, antepartum: Status: Acute (2) Active labor at term: Status: Acute (3) 38 weeks gestation of : Status: Acute (4) Pre-eclampsia: Status: Acute Problem List Completed Was Problem List Reviewed/Reconciled?: Yes (4) Pre-eclampsia Qualifiers: Trimester: third trimester Qualified Code(s): O14.93 - Unspecified pre- eclampsia, third trimester
[2025-09-04 10:24] LABS: Chlamydia trachomatis PCR Negative (Not Detect); Neisseria Gonorrhoeae DNA PCR Negative (Not Detect); Trichomonas Negative (Negative)
--- NOTE | 2025-09-04 11:09 | PD.LDDELS ---
Data (Hernandez) Data Hx Section: Yes : 2 Term: 0 : 1 Livin Abortions: Spontaneous & Theraputic: 0 Delivery Data (Hernandez) Labor Data Induction/Augmentation Agent: None ROM date: 09/04/25 ROM time: 05:15 Amniotic membrane rupture type: Spontaneous Amniotic fluid description: Clear Delivery Data Onset of labor date: 09/04/25 Onset of labor time: 01:00 [place] delivery date: 09/04/25 delivery time: 08:45 Placenta delivery date: 09/04/25 Placenta delivery time: 08:46 Delivered by: Pita Horton Delivery nurse: EVENS Neworn nurse: [email or web address] Patient Access Director at delivery: Yes (DR. JUSTICE) Support person(s) at delivery: STEP MOTHER OF PT Other staff at delivery: SHANNAN MALONE BARCN Delivery Method Delivery method: Low Transverse Presentation: Vertex Anesthesia Type Anesthesia Type: None Anesthesia type: Spinal (with sedation) Placenta Placenta delivery description: Manual Removal Cord blood sent to lab: Yes cord blood collection: Cord Blood Type Episiotomy Episiotomy description: None Umbilical Cord cord description: 3 Vessels Additional Procedures Uncomplicated repeat low transverse section, see op report for more details Complications Complications: none Data (Hernandez) [place] Data order: 1 [place]'s gender: Female Identification band number: [id number] weight (gms): 3180 g Weight (pounds): 7 lbs and 0.2 ozs length: 50.8 cm 1 minute: 9 5 minutes: 9
[2025-09-04] MEDS: OXYTOCIN in NS 20 units 20 UNIT/1,000 ML BAG 125 UNIT IV (16:59)
[2025-09-04 18:51] LABS: Basophils # (Auto) 0.0 Thou/mm3 (0.0-0.2); Basophils % (Auto) 0 % (0-2.5); Eosinophils # (Auto) 0.0 Thou/mm3 (0.0-0.5); Eosinophils % (Auto) 0 % (0-10); Hematocrit 26.3 % (36.0-46.0); Immature Granulocytes Auto 0.05 Thou/mm3 (0.00-0.00); Lymphocytes # (Auto) 1.2 Thou/mm3 (1.0-4.8); Lymphocytes % (Auto) 11 % (10-50); Mean Corpuscular HGB Conc 31.9 g/dl (31.0-37.0); Mean Corpuscular Hemoglobin 23.2 pg (25.0-35.0); Mean Corpuscular Volume 73 fL (80-100); Monocytes # (Auto) 0.7 Thou/mm3 (0.0-0.8); Monocytes % (Auto) 7 % (0-12); Neutrophils # (Auto) 8.2 Thou/mm3 (1.8-7.7); Neutrophils % (Auto) 81 % (37-80); Nucleated Red Blood Cell # 0.00 Thou/mm3 (0.00-0.00); Nucleated Red Blood Cell % 0 /100 WBC (0); Platelet Count 169 Thou/mm3 (140-440); RDW Standard Deviation 41.8 fL (36.4-46.3); Red Blood Count 3.62 Miln/mm3 (4.00-5.20); White Blood Count 10.2 Thou/mm3 (3.6-11.0)
[2025-09-04 18:56] LABS: Hemoglobin 8.4 g/dL (12.0-16.0)
[2025-09-04] MEDS: KETOROLAC INJ 30 MG/ML VIAL IVP (19:24)
[2025-09-05] MEDS: RINGERS LACTATED 1000 ML 1,000 ML 100 ML IV (00:04)
[2025-09-05 03:43] VITALS: BP 128/72; PULSE 96; RESP 16; TEMP 36.8; O2SAT 96
[2025-09-05 06:40] LABS: Basophils # (Auto) 0.0 Thou/mm3 (0.0-0.2); Basophils % (Auto) 0 % (0-2.5); Eosinophils # (Auto) 0.1 Thou/mm3 (0.0-0.5); Eosinophils % (Auto) 1 % (0-10); Hematocrit 26.5 % (36.0-46.0); Immature Granulocytes Auto 0.04 Thou/mm3 (0.00-0.00); Lymphocytes # (Auto) 1.2 Thou/mm3 (1.0-4.8); Lymphocytes % (Auto) 11 % (10-50); Mean Corpuscular HGB Conc 30.2 g/dl (31.0-37.0); Mean Corpuscular Hemoglobin 22.3 pg (25.0-35.0); Mean Corpuscular Volume 74 fL (80-100); Monocytes # (Auto) 0.7 Thou/mm3 (0.0-0.8); Monocytes % (Auto) 7 % (0-12); Neutrophils # (Auto) 8.2 Thou/mm3 (1.8-7.7); Neutrophils % (Auto) 80 % (37-80); Nucleated Red Blood Cell # 0.00 Thou/mm3 (0.00-0.00); Nucleated Red Blood Cell % 0 /100 WBC (0); Platelet Count 201 Thou/mm3 (140-440); RDW Standard Deviation 43.2 fL (36.4-46.3); Red Blood Count 3.59 Miln/mm3 (4.00-5.20); White Blood Count 10.3 Thou/mm3 (3.6-11.0)
[2025-09-05 07:19] LABS: Hemoglobin 8.0 g/dL (12.0-16.0)
--- NOTE | 2025-09-05 07:28 | PD.LDPPPRG ---
Subjective Subjective Interval history: Patient doing well overall. Pain is controlled. She is ambulating no lightheadedness/dizziness. Voiding spontaneously since tapia was removed, no issues. Tolerating regular diet without nausea/vomiting. Not yet passing gas. No fevers/chills, no CP/SOB. Exam Vital Signs Temp Pulse Resp BP Pulse Ox O2 Del Method 98.3 F 96 16 128/72 96 Room Air 09/05/25 03:43 09/05/25 03:43 09/05/25 03:43 09/05/25 03:43 09/05/25 03:43 09/05/25 03:43 Narrative Exam General: well developed, well nourished, no acute distress, conversant Cardiac: normal heart rate Lungs: breathing without distress Abdomen: soft, post-gravid, non-tender, no rebound or guarding, pfannenstiel incision covered by dry/clean/intact prineo bandage. Incision well reapproximated. No erythema, drainage or induration. Fundus firm at u-2cm. Extremities: no pain with palpation of calves, trace edema of BLE Objective Labs 09/05/25 05:28 09/04/25 06:00 Labs: Laboratory Results - last 24 hr 09/04/25 09/04/25 09/04/25 05:45 06:00 18:04 WBC 10.2 RBC 3.62 L Hgb 8.4 L Hct 26.3 L MCV 73 L MCH 23.2 L MCHC 31.9 RDW Std Deviation 41.8 Plt Count 169 D Neut % (Auto) 81 H Lymph % (Auto) 11 Beckham % (Auto) 7 Eos % (Auto) 0 Baso % (Auto) 0 Neut # (Auto) 8.2 H Lymph # (Auto) 1.2 Beckham # (Auto) 0.7 Eos # (Auto) 0.0 Baso # (Auto) 0.0 Immature Gran # (Auto) 0.05 H Absolute Nucleated RBC 0.00 Immature Gran % 1 H Nucleated RBC % 0 Sodium 137 Potassium 4.0 Chloride 106 Carbon Dioxide 20.0 Anion Gap 11 BUN 8 L Creatinine 0.8 Estim Creat Clear Calc 84.0 eGFR > 60 BUN/Creatinine Ratio 10 L Glucose 104 Calculated Osmolality 272 L Uric Acid 6.1 Calcium 9.0 Corrected Calcium 9.0 Total Bilirubin 0.3 AST 15 ALT < 7 L Alkaline Phosphatase 233 H Total Protein 7.4 Albumin 4.3 Globulin 3.1 Albumin/Globulin Ratio 1.4 Ur Random Creatinine 43 U Random Total Protein 23 H Syphilis Serology Nonreactive Chlam trachomat DNA PCR Negative N.gonorrhoeae DNA (PCR) Negative Trichomonas DNA Probe Negative Blood Type O Positive Blood Bank Wristband ID Yes 09/05/25 05:28 WBC 10.3 RBC 3.59 L Hgb 8.0 L Hct 26.5 L MCV 74 L MCH 22.3 L MCHC 30.2 L RDW Std Deviation 43.2 Plt Count 201 D Neut % (Auto) 80 Lymph % (Auto) 11 Beckham % (Auto) 7 Eos % (Auto) 1 Baso % (Auto) 0 Neut # (Auto) 8.2 H Lymph # (Auto) 1.2 Beckham # (Auto) 0.7 Eos # (Auto) 0.1 Baso # (Auto) 0.0 Immature Gran # (Auto) 0.04 H Absolute Nucleated RBC 0.00 Immature Gran % 0 Nucleated RBC % 0 Sodium Potassium Chloride Carbon Dioxide Anion Gap BUN Creatinine Estim Creat Clear Calc eGFR BUN/Creatinine Ratio Glucose Calculated Osmolality Uric Acid Calcium Corrected Calcium Total Bilirubin AST ALT Alkaline Phosphatase Total Protein Albumin Globulin Albumin/Globulin Ratio Ur Random Creatinine U Random Total Protein Syphilis Serology Chlam trachomat DNA PCR N.gonorrhoeae DNA (PCR) Trichomonas DNA Probe Blood Type Blood Bank Wristband ID Assessment & Plan Problem List (1) delivery delivered: Status: Acute Assessment and plan: Lulu is a 24yo [id number] s/p uncomplicated RLTCS after presenting in labor, doing well on POD 1. Vitals wnl (bp now normotensive), benign exam. Hemodynamically stable with no evidence of infection. Appropriate change in H/H from 9.8 to 8.4 to 8. Awaiting passage of gas. No s/sx of worsening pre-E. complicated by: -History of prior section at 33 weeks on 01/28/2024 for possible abruption in the setting of PPROM and pre-eclampsia with severe features -New diagnosis of pre-eclampsia withOUT severe features -Short inter- interval -Late to care at 30 weeks -Chlamydia treated in -Anemia Plan: -Continue routine /post-op care -IV iron infusion today -Regular diet -motrin 800mg PO Q8hr, norco 5/325mg PO Q6hr prn pain -Encourage ambulation and use of IS -Anticipate discharge home tomorrow if meeting all milestones (2) History of delivery, antepartum: Status: Acute (3) Active labor at term: Status: Acute (4) 38 weeks gestation of : Status: Acute (5) Pre-eclampsia: Status: Acute Time Spent With Patient Time: Total time spent is greater than 50% in coordination of care (as documented) at patient's floor/unit and/or counseling patient:
[2025-09-05 08:05] VITALS: BP 129/81; PULSE 86; RESP 18; TEMP 37.3; O2SAT 96
[2025-09-05] MEDS: FERRIC SOD GLUC INJ 125 MG in SODIUM CHLORIDE 0.9% 100 ML 110 MG IV (09:01)
--- NOTE | 2025-09-05 09:40 | PC.SS ---
LAWN SPECIALIST conducted bedside contact with the patient to address nursing referral indicating patient was late to care at 31 weeks.? LAWN SPECIALIST introduced self and role.? LAWN SPECIALIST reviewed basis of referral.? Patient confirmed late to care (31 weeks) due to lack of transportation and patient not possessing daycare for 1 year old child. Once OB services scheduled patient conducted services with Raquel Felton.? LAWN SPECIALIST discussed with the patient importance of participating with physician appointments.? Patient stated that she now has family to assist with transportation.? Infant, Pennie; is the patient?s second child.? Infant delivered via .? FOB, Arjun Gifford will be involved in the rearing of the infant.? Patient is receiving WIC, SNAP or TANF.? Patient denies history of alcohol/drug abuse.? Patient denies CWS intervention.? Patient denies episodes of domestic violence.? Patient reports no current possession of depression or anxiety.? Patient plans on bottle feeding the .? Patient has access to appropriate supplies and equipment; to include a car seat.? Family will provide transportation upon discharge.? Patient describes possessing support system consisting of FOB, parents and extended family.? LAWN SPECIALIST provided the patient with community resources to include [employer] Network and Warm Line.? No further intervention required at this time, high school social studies teacher will be available to address any further concerns.? LAWN SPECIALIST updated bedside nurse.?
[2025-09-05 14:30] VITALS: BP 119/70; PULSE 74; RESP 16; TEMP 37.4
[2025-09-05] MEDS: IBUPROFEN TAB 400 MG TABLET 800 MG PO ×2 (14:43→21:10)
[2025-09-05 21:40] VITALS: BP 116/70; PULSE 77; RESP 16; TEMP 36.8; O2SAT 98
[2025-09-06 04:05] VITALS: BP 124/82; PULSE 82; RESP 18; TEMP 36.7; O2SAT 99
[2025-09-06] MEDS: IBUPROFEN TAB 400 MG TABLET 800 MG PO (05:45)
--- NOTE | 2025-09-06 07:24 | CHAP ---
Patient was visited by a Spiritual Care Volunteer on 09/05/2025 between 0900 and 1130 and reeived comfort, encouragement and/or prayer. Family also received a blessing on infant and family.
[2025-09-06 08:00] VITALS: BP 111/75; PULSE 97; RESP 17; TEMP 36.7; O2SAT 99
--- NOTE | 2025-09-06 09:27 | PC.NURSE ---
patient declined MMR and flu vaccine, education given.
--- NOTE | 2025-09-06 12:49 | PD.LDDS ---
DS: Providers Provider Date of admission: 09/04/25 05:29 Primary care physician: Physician No Primary/Family Admitting Provider: Pita Horton MD Attending Provider on Admission: Pita Horton MD Consults: 09/04/25 11:12 Referral Routine Comment: Attending Provider on DC: Angela Spencer MD Discharging Provider: Angela Spencer MD DS: Diagnosis Problem List Completed Was Problem List Reviewed/Reconciled?: Yes Summary/Hosp Course Brief History: Patient presents for regular, painful ctx. When presented to triage, had gross rupture of membranes, clear. No vaginal bleeding. Normal movement. No fevers/chills./ POD #2 today / Passing gas Lulu is a 24yo [id number] s/p uncomplicated RLTCS after presenting in labor, doing well on POD 1. Vitals wnl (bp now normotensive), benign exam. Hemodynamically stable with no evidence of infection. Appropriate change in H/H from 9.8 to 8.4 to 8. Awaiting passage of gas. No s/sx of worsening pre-E. complicated by: -History of prior section at 33 weeks on 01/28/2024 for possible abruption in the setting of PPROM and pre-eclampsia with severe features -New diagnosis of pre-eclampsia withOUT severe features -Short inter- interval H/o chlamydia and anemia Peripartum Data Delivery Method: Low Transverse Episiotomy Description: None Procedures: Procedures Operation Date: 09/04/25 08:15 Actual Procedure Side Surgeon p in OB Not Applicable Pita Horton MD complications: none 1: Disposition of : home Status at Discharge Cognitive/behavioral status at discharge: Reviewed all 14 point review of systems and all is negative except as noted Functional status at discharge: independent ambulation Overall status at discharge: patient is progressing back to baseline Time Spent with Patient Time attestation: Total time spent providing and/or coordinating discharge services: Time spent: Less than 30 minutes Exam Vital Signs Temp Pulse Resp BP Pulse Ox O2 Del Method 98.0 F 97 17 111/75 99 Room Air 09/06/25 08:00 09/06/25 08:00 09/06/25 08:00 09/06/25 08:00 09/06/25 08:00 09/06/25 08:00 Narrative Exam alert x3 chest clear CVS RRR NO thyromegaly Uterus is nontender Uterus is firm/ appropriate size Just below the umbilicus Bowel sounds present Abdomen soft no hernias noted/no CVAT Incision CDI No drainage Appropriately tender No calf tenderness Edema mild Discharge Plan Plan Patient Disposition: HOME (Self Care) Patient condition on transfer: Stable Prescriptions/Referrals Prescriptions/Med Rec: New hydrocodone-acetaminophen 5-325 mg Tablet 1 tab PO Q6H MDD 4 tablets PRN (Reason: Patient rated pain 7 to 8) 7 Days Qty: 12 0RF docusate sodium 100 mg Capsule 100 mg PO BID 10 Days Qty: 20 0RF ibuprofen 800 mg tablet 800 mg PO Q8HR PRN (Reason: Abdominal Pain) 10 Days Qty: 30 0RF ferrous sulfate 325 mg (65 mg iron) tablet,delayed release (DR/EC) 325 mg PO QDAY Qty: 30 0RF Referrals: No Primary/Family,Physician [Primary Care Provider] Patient/Caregiver Discharge Instructions Discharge Activity: activity as tolerated and other Other Discharge Activity Instructions:: vaginal rest and no heavy lifting more than 10 pounds for 6 weeks, no driving while taking narcotic. keep incision clean and dry, do not submerge/ follow up in 1 week for BP check Other Discharge Diet Instructions: regular Education Materials: Breast Care After , After a , C Section Dc Print Language: Georgian Activity Restrictions/Additional Instructions: follow up with MARIELY Felton in 1 to 2 weeks for incision check, call clinic to schedule appointment vaginal rest and no heavy lifting more than 10 pounds for 6 weeks, no driving while taking narcotic. keep incision clean and dry, do not submerge Stand Alone Forms: [employer] Award Info., Patient Portal Info Letter, DC from Surgery Discharge Order Discharge Orders: Discharge (Routine); Ordered 09/06/25 Ordered By: Angela Spencer Planned Discharge Date 09/06/25
== END 2025-09-06 14:45 | disposition home or self-care (01) | DRG 540 ==
LOC: S4SX 07:46 → S4NX 08:24
PROVIDERS: Admitting Provider Obstetrics & Gynecology; Visit Provider Obstetrics & Gynecology
PROC: 10D00Z1 Extraction of Products of Conception, Low, Open Approach (ICD-10-PCS; CPT 59514; principal; 2025-09-04 08:00)
DX: O34.211 Maternal care for low transverse scar from previous cesarean delivery (principal); Z37.0 Single live birth; Z3A.38 38 weeks gestation of pregnancy; O14.04 Mild to moderate pre-eclampsia, complicating childbirth; O26.893 Other specified pregnancy related conditions, third trimester; O99.02 Anemia complicating childbirth; K66.0 Peritoneal adhesions (postprocedural) (postinfection)
CPT/HCPCS: 36415; 59025; 59409; 80053; 80307; 81001; 82570; 84156; 84550; 85025; 85384; 85610; 85730; 86780; 86900; 86901; 87491; 87591; 87661; 94762; A4217; A4314; A4649; C1765; J0456; J0689; J1885; J2274; J2590; J2704; J2765; J2916; J3010; J3105; J3290; J3490; J7050; J7120; A9270; J2270